=== PATIENT | female | born 1995 | race Caucasian/White ===

== ENCOUNTER 2023-04-11 20:21 | Outpatient (REF) | payer BC, SELFPAY ==
[2023-04-15 11:10] LABS: Age Gdln ACOG Testing Note (.); IGP, rfx Aptima HPV ASCU Note (.)
== END 2023-04-11 20:22 | disposition home or self-care (01) ==
LOC: LAB 20:21
PROVIDERS: Visit Provider Physician Assistant
DX: Z01.419 Encounter for gynecological examination (general) (routine) without abnormal findings (principal)
CPT/HCPCS: G0145

== ENCOUNTER 2024-08-15 19:45 | Outpatient (REF) | payer BC, SELFPAY ==
--- OUTSIDE RECORDS SUMMARY | 2024-08-15 19:48 | XMS_ITS | CCD ---
Author Organization [facility] Care Team Providers Care Electronic Sensing Equipment Assembler Name Role Phone Becka Aaron Unavailable EFRAIN ., DR REBOLLAR Attending Unavailable EFRAIN ., DR REBOLLAR Admitting Unavailable EFRAIN ., DR REBOLLAR Consulting Unavailable EFRAIN ., DR REBOLLAR Consulting Unavailable EFRAIN ., DR REBOLLAR Attending Unavailable EFRAIN ., DR REBOLLAR Admitting Unavailable EFRAIN ., DR REBOLLAR Consulting Unavailable EFRAIN ., DR REBOLLAR Admitting Unavailable EFRAIN ., DR REBOLLAR Attending Unavailable ZIEBER, DR SUSHMA Dumont Consulting Unavailable BENITO ., ANTHONY Consulting Unavailable EFRAIN ., DR REBOLLAR Consulting Unavailable EFRAIN ., DR REBOLLAR Attending Unavailable EFRAIN ., DR REBOLLAR Admitting Unavailable EFRAIN ., DR REBOLLAR Attending Unavailable EFRAIN ., DR REBOLLAR Admitting Unavailable DELHI, DR SERA Lund Consulting Unavailable EFRAIN ., DR REBOLLAR Consulting Unavailable EFRAIN ., DR REBOLLAR Consulting Unavailable EFRAIN ., DR REBOLLAR Admitting Unavailable EFRAIN ., DR REBOLLAR Attending Unavailable ZIEBER, DR SUSHMA Dumont Consulting Unavailable BENITO ., ANTHONY Consulting Unavailable EFRAIN ., DR REBOLLAR Admitting Unavailable EFRAIN ., DR REBOLLAR Attending Unavailable RICHIE KYA Consulting Unavailable KYA QUIROZ Admitting Unavailable KYA QUIROZ Attending Unavailable EFRAIN ., DR REBOLLAR Consulting Unavailable EFRAIN ., DR REBOLLAR Attending Unavailable EFRAIN ., DR REBOLLAR Admitting Unavailable EFRAIN ., DR REBOLLAR Consulting Unavailable EFRAIN ., DR REBOLLAR Admitting Unavailable EFRAIN ., DR REBOLLAR Attending Unavailable KARASIK ., DR SUBRAMANIAN Attending Unavailabl e KARASIK ., DR SUBRAMANIAN Consulting Unavailabl e KARASIK ., DR SUBRAMANIAN Admitting Unavailabl e EFRAIN ., DR REBOLLAR Consulting Unavailable EFRAIN ., DR REBOLLAR Admitting Unavailable EFRAIN ., DR REBOLLAR Attending Unavailable RICHIE, KYA Consulting Unavailable RICHIE, KYA Admitting Unavailable RICHIE, KYA Attending Unavailable KARASIK ., DR SUBRAMANIAN Admitting Unavailabl e KARASIK ., DR SUBRAMANIAN Attending Unavailabl e KARASIK ., DR SUBRAMANIAN Consulting Unavailabl e ZIEBER, DR SUSHMA Dumont Consulting Unavailable BENITO ., ANTHONY Consulting Unavailable WEST, DR SERA Lund Consulting Unavailable EFRAIN ., DR REBOLLAR Admitting Unavailable EFRAIN ., DR REBOLLAR Attending Unavailable EFRAIN ., DR REBOLLAR Consulting Unavailable BENITO ., ANTHONY Consulting Unavailable EFRAIN ., DR REBOLLAR Admitting Unavailable EFRAIN ., DR REBOLLAR Consulting Unavailable EFRAIN ., DR REBOLLAR Attending Unavailable EFRAIN ., DR REBOLLAR Admitting Unavailable EFRAIN ., DR REBOLLAR Attending Unavailable EFRAIN ., DR REBOLLAR Consulting Unavailable EFRAIN ., DR REBOLLAR Admitting Unavailable EFRAIN ., DR REBOLLAR Attending Unavailable EFRAIN ., DR REBOLLAR Admitting Unavailable EFRAIN ., DR REBOLLAR Consulting Unavailable EFRAIN ., DR REBOLLAR Attending Unavailable ZIEBER, DR SUSHMA Dumont Consulting Unavailable REQUEST, DR JANETH LISTED Consulting Unavaila ble BENITO ., ANTHONY Attending Unavailable BENITO ., ANTHONY Consulting Unavailable BENITO ., ANTHONY Admitting Unavailable EFRAIN ., DR REBOLLAR Consulting Unavailable EFRAIN ., DR REBOLLAR Admitting Unavailable EFRAIN ., DR REBOLLAR Attending Unavailable ZIEBER, DR SUSHMA Dumont Consulting Unavailable BENITO ., ANTHONY Consulting Unavailable KARASIK ., DR SUBRAMANIAN Attending Unavailabl e KARASIK ., DR SUBRAMANIAN Consulting Unavailabl e KARASIK ., DR SUBRAMANIAN Admitting Unavailabl e EFRAIN ., DR REBOLLAR Consulting Unavailable EFRAIN ., DR REBOLLAR Admitting Unavailable EFRAIN ., DR REBOLLAR Attending Unavailable ZIEBER, DR SUSHMA Dumnot Consulting Unavailable BENITO ., ANTHONY Consulting Unavailable EFRAIN ., DR REBOLLAR Consulting Unavailable EFRAIN ., DR REBOLLAR Admitting Unavailable EFRAIN ., DR REBOLLAR Attending Unavailable ZIEBER, DR SUSHMA Dumont Consulting Unavailable BENITO ., ANTHONY Consulting Unavailable EFRAIN ., DR REBOLLAR Attending Unavailable EFRAIN ., DR REBOLLAR Admitting Unavailable HAY ., DR STEVENS Admitting Unavailable REQUEST, NONE LISTED Primary Care Unavaila romario WOOD ., DR STEVENS Attending Unavailable ISRAEL ., DR STEVENS Consulting Unavailable ROSEMARY ., DR SUBRAMANIAN Procedure Practitioner Ana Laura vajacqueline RILEY ., DR SUBRAMANIAN Attending Unavailabl e ROSEMARY ., DR SUBRAMANIAN Admitting Unavailaustin NAVA ., DR PRO Consulting Unavailable REQUEST, DR NONE LISTED Primary Care Unavaila romario RILEY ., DR SUBRAMANIAN Consulting UnavailABHIJEET Diaz Consulting Unavailable KAEL CHATMAN Consulting Unavailable BENITO ., ANTHONY Attending Unavailable BENITO ., ANTHONY Admitting Unavailable KYA QUIROZ Consulting Unavailable KYA QUIROZ Admitting Unavailable KYA QUIROZ Attending Unavailable Lester EATON Attending Unavailable French Langford V. Attending UnavailMarie Evans Unavailable Medications Current Medications Medication Drug Class(es) Dates Sig (Normalized) Sig (Original) christian fe 1.5/30 1.5-30 mg-mcg tablet (11 sources) Estrogen take 1 tablet by christal th every twenty-four hours Christian Fe 1.5/30 1.5-30 MG-MCG 1 tablet Orally Once a day Active take 1 tablet by christal th every twenty-four hours Christian Fe 1.5/30 1.5-30 MG-MCG 1 tablet Orally Once a day Active hydrocortisone acetate 25 mg rectal suppository (11 sources) Corticosteroid Start: 12-12-2023 Hydrocortisone Acetate Active 25 MG VA Twice daily December 12, 2023 12:00am Anusol-HC 25 MG 1 suppository Rectal BID PRN for 10 days Not-Taking/PRN lamoTRIgine 150 mg oral tablet (16 sources) Mood Stabilizer, Anti-epileptic Agent Start: 01-30-2024 take 150 mg by mouth once daily Lamotrigine Active 150 MG PO Daily January 30, 2024 11:17am Start: 12-12-2023 End: 01-30-2024 take 1 tablet by mouth once daily Lamotrigine Discontinued 0 .ROUTE .COMPLEX 90 December 12, 2023 8:16am January 30, 2024 11:18am take 1 tablet by mouth once daily Start: 12-12-2023 End: 12-12-2023 take 150 mg by mouth once daily Lamotrigine Discontinu ed 150 MG PO Daily December 12, 2023 12:00am December 12, 2023 8:16am Start: 05-03-2023 take 1 tablet by christal th every twenty-four hours lamoTRIgine 100 MG 1 tablet Orally Once a day for 14 days Apr, Active Start: 04-05-2023 take 1 tablet by christal th once daily, then take 2 tablets by mouth once daily, then take 4 tablets by mouth once daily lamoTRIgine 25 MG as directed Orally Once a day for 35 days *1 tab daily x 14 days, then 2 tabs daily x 14 days, then 4 tabs daily x 7 days Mar, Active take 1 tablet by christal th every twenty-four hours lamoTRIgine 150 MG 1 tablet Orally Once a day for 90 days Active Norethindrone-E.Estradiol-Ir on (1 source) Start: 12-12-2023 take 1 tablet by mouth once daily Norethindrone-E.Estradiol-Iron Active 1 TAB PO Daily December 12, 2023 12:00am Problems Active Problems Problem Classification Problem Date Documented Date Episodic/Chronic Abdominal pain (3 sources) Unspecified abdominal pain; Translations: [UNSPECIFIED ABDOMINAL PAIN] Onset: 09-17-2022 Episodic Acute posthemorrhagic anemia (1 source) Acute posthemorrhagic anemia; Translations: [ACUTE POSTHEMORRHAGIC ANEMIA] Onset: 10-20-2022 Episodic Diabetes or abnormal glucose tolerance complicating ; childbirth; or the puerperium (15 sources) Gestational diabetes mellitus in childbirth, controlled by oral hypoglycemic drugs; Translations: [Gestational diabetes mellitus in , unspecified control] Onset: 08-13-2022 Episodic distress and abnormal forces of labor (1 source) Secondary uterine inertia; Translations: [SECONDARY UTERINE INERTIA] Onset: 10-20-2022 Episodic Fetopelvic disproportion; obstruction (1 source) Maternal care for disproportion, unspecified; Translations: [MATERNAL CARE FOR DISPROPORTION UNS] Onset: 10-20-2022 Episodic Hemorrhoids (9 sources) Unspecified hemorrhoids; Translations: [Hemorrhoids] Episodic Menstrual disorders (4 sources) Irregular menstruation, unspecified; Translations: [IRREGULAR MENSTRUATION UNSPECIFIED] Onset: 02-05-2022 Chronic Mood disorders (20 sources) Depressed bipolar I disorder; Translations: [Bipolar disorder, current episode depressed, mild or moderate severity, unspecified] Chronic Other aftercare (1 source) Encounter for other specified surgical aftercare; Translations: [ENC OTHER SPEC SURGICAL AFTERCARE] Onset: 09-20-2022 Episodic Other aftercare (1 source) Other snf (current) drug therapy; Translations: [OTH CLINICAL DATA ANALYST CURRENT DRUG THERAPY] Onset: 09-20-2022 Episodic Other complications of ; puerperium affecting management of mother (1 source) Anemia of the puerperium; Translations: [ANEMIA OF THE PUERPERIUM] Onset: 10-20-2022 Chronic Other complications of (1 source) Other placental disorders, third trimester; Translations: [OTH PLACENTAL DISORDER THIRD TRI] Onset: 08-19-2022 Episodic Other and delivery including normal (12 sources) Single live ; Translations: [ state, incidental] Onset: 02-07-2022 Episodic Residual codes; unclassified (1 source) 40 weeks gestation of ; Translations: [40 WEEKS GESTATION OF ] Onset: 10-20-2022 Episodic Residual codes; unclassified (1 source) 39 weeks gestation of ; Translations: [39 WEEKS GESTATION OF ] Onset: 09-10-2022 Episodic Residual codes; unclassified (1 source) 38 weeks gestation of ; Translations: [38 WEEKS GESTATION OF ] Onset: 09-04-2022 Episodic Residual codes; unclassified (1 source) 37 weeks gestation of ; Translations: [37 WEEKS GESTATION OF ] Onset: 08-30-2022 Episodic Residual codes; unclassified (1 source) 36 weeks gestation of ; Translations: [36 WEEKS GESTATION OF ] Onset: 08-19-2022 Episodic Residual codes; unclassified (1 source) 35 weeks gestation of ; Translations: [35 WEEKS GESTATION OF ] Onset: 08-13-2022 Episodic Residual codes; unclassified (1 source) 34 weeks gestation of ; Translations: [34 WEEKS GESTATION OF ] Onset: 08-06-2022 Episodic Residual codes; unclassified (1 source) 33 weeks gestation of ; Translations: [33 WEEKS GESTATION OF ] Onset: 07-30-2022 Episodic Past or Other Problems Problem Classification Problem Date Documented Date Episodic/Chronic Immunizations and screening for infectious disease (7 sources) Contact with and (suspected) exposure to other viral communicable diseases; Translations: [Encounter for screening for infections with a predominantly sexual mode of transmission] Onset: 06-09-2021 Resolved: 06-09-2021 Episodic Other female genital disorders (4 sources) Other specified noninflammatory disorders of vagina; Translations: [OTH SPEC NONINFLAMMATORY D/O VAGINA] Onset: 03-29-2022 Episodic Other screening for suspected conditions (not mental disorders or infectious disease) (14 sources) Encounter for other specified screening; Translations: [Encounter for screening, unspecified] Onset: 02-25-2022 Episodic Viral infection (1 source) COVID-19 Onset: 06-09-2021 Resolved: 06-09-2021 Results Test Name Value Interpretation Reference Range Facility Family Medicine Office/Clini c Noteon 12-20-2022 Family Medicine Office/Clinic Note Chief Complaint Pt in office with nasal congestion dry cough and right ear pain. HPI Staff Complaints of nasal congestion, sinus pressure, right ear pain, dry cough. No fever Onset: 5 days ago Characteristics: Sinus pressure, congestion, blood tinge mucous, right ear pain. OTC tried: Benadryl, Dayquil History of Present Illness Portions of this record may have been created with voice recognition artificial intelligence software, specifically [employer], [employer] and or [employer]. Substitutions may have occurred due to the inherent limitations of voice recognition and artificial intelligence software. Staff hpi reviewed. Patient is a 27 year-old female complains of right ear pain. Denies pain in the left ear. Has had sinus pressure dry cough. States symptoms began 5 days ago. Has attempted Benadryl and DayQuil. No other complaints or concerns. Patient with no known medication allergies. Review of Systems PHQ Score Initial Depression Screen Score: 0 Physical Exam Vitals & Measurements HR: 124(Peripheral) RR: 14 BP: 102/62 SpO2: 97% HT: 64 in HT: 162 cm WT: 87.54 kg WT: 192.588 lb BMI: 33.36 General - alert no acute distress Skin - warm dry Head -normocephalic atraumatic Eye - normal conjunctiva ENMT - right TM bulging and erythematous, left TM pearly lloyd white, mild cobblestoning Neck - supple Cardiovascular - regular rate regular rhythm, no murmur, normal peripheral perfusion Respiratory - lungs clear to auscultation, nonlabored respirations, breath sounds equal Lymphatics - no lymphadenopathy Assessment/Plan 1. Right otitis media (H66.91: Otitis media, unspecified, right ear) Will treat with amoxil. Finish course. Fluids/rest, PRN tylenol/ibuprofen for pain and/or fever encouraged. May use antipyretics for symptomatic tx. Encouraged to follow up with PCP for recheck in about 5 days to ensure infection resolving, especially if symptoms worsening or fevers. Patient and/or parent verbalized understanding of treatment plan. Ordered: amoxicillin, 500 mg = 1 cap(s), Oral, q12hr, # 20 cap(s), Refills(s) 0, Pharmacy: [facility] #[id number], 162, cm, 12/20/22 16:20:00 EDT, Height/Length Dosing, 87.5, kg, 12/20/22 16:20:00 EDT, Weight Dosing loratadine-pseudoeph edrine, 1 tab(s), Oral, Daily, 15 tab(s), Refill(s) 0, [facility] #[id number], 162, cm, 12/20/22 16:20:00 EDT, Height/Length Dosing, 87.5, kg, 12/20/22 16:20:00 EDT, Weight Dosing 2. Otalgia, right ear (H92.01: Otalgia, right ear) As above Ordered: amoxicillin, 500 mg = 1 cap(s), Oral, q12hr, # 20 cap(s), Refills(s) 0, Pharmacy: [facility] #[id number], 162, cm, 12/20/22 16:20:00 EDT, Height/Length Dosing, 87.5, kg, 12/20/22 16:20:00 EDT, Weight Dosing loratadine-pseudoeph edrine, 1 tab(s), Oral, Daily, 15 tab(s), Refill(s) 0, [facility] #[id number], 162, cm, 12/20/22 16:20:00 EDT, Height/Length Dosing, 87.5, kg, 12/20/22 16:20:00 EDT, Weight Dosing 3. Runny nose (R09.89: Other specified symptoms and signs involving the circulatory and respiratory systems) We have provided you with a decongestant this will help clear up the ears and sinuses. Ordered: loratadine-pseudoeph edrine, 1 tab(s), Oral, Daily, 15 tab(s), Refill(s) 0, [facility] #[id number], 162, cm, 12/20/22 16:20:00 EDT, Height/Length Dosing, 87.5, kg, 12/20/22 16:20:00 EDT, Weight Dosing 4. BMI 33.0-33.9,adult (Z68.33: Body mass index [BMI] 33.0-33.9, adult) The standard range for ages 18 and older is >=18.5 and < 25 kg/m2. Your BMI today was above this range, this falls in the overweight to obese category and there are medical benefits to weight loss. We can offer counselling, referral, and/or medical support in addressing this problem. Your BMI and weight management will be followed at subsequent visits. Follow-up No qualifying data available Patient Education Otitis Media, Adult BMI for Adults Problem List/Past Medical History Ongoing Anxiety Bipolar disorder, current episode mixed BMI 33.0-33.9,adult Candidal dermatitis Dermatitis Gastroenteritis Heart murmur, systolic Knee pain Otalgia, right ear Right otitis media Runny nose Historical No qualifying data Procedure/Surgical History None. Medications amoxicillin 500 mg Cap, 500 mg= 1 cap(s), Oral, q12hr Benadryl Claritin-D 24 Hour 10 mg-240 mg Tab-ER, 1 tab(s), Oral, Daily Dayquil Liquicaps ethinyl estradiol-norgestima te 35 mcg-0.25 mg Tab, 1 tab(s), Oral, Daily Allergies No Known Allergies No Known Medication Allergies Social History Alcohol Current, Beer, 1-2 times per year, 1 drinks/episode average. 1.00 drinks/episode maximum. Started age 20 Years. Previous treatment: None. Alcohol use interferes with work or home: No. Drinks more than intended: No. Others hurt by drinking: No. Ready to change: No., 01/11/2019 Substance Abuse - Denies Substance Abuse, 01/11/2019 Tobacco Never (less than 100 in lifetime) Tobacco Use:. Never Smokeless Tobacco Use:., 02/14/2019 Family History Autis (more content not included)... Normal [facility] Comment on above: Result Comment: Elec tronically Signed By: French Langford PA-C, V.\.br\Date and Time Signed: 12/20/22 16:44 EDT Patient Educationon 12-21-19 Patient Education ENT Otitis Media, Adult Otitis media occurs when there is inflammation and fluid in the middle ear with signs and symptoms of an acute infection. The middle ear is a part of the ear that contains bones for hearing as well as air that helps send sounds to the brain. When infected fluid builds up in this space, it causes pressure and can lead to an ear infection. The eustachian tube connects the middle ear to the back of the nose (nasopharynx) and normally allows air into the middle ear. If the eustachian tube becomes blocked, fluid can build up and become infected. What are the causes? This condition is caused by a blockage in the eustachian tube. This can be caused by mucus or by swelling of the tube. Problems that can cause a blockage include: ? A cold or other upper respiratory infection. ? Allergies. ? An irritant, such as tobacco smoke. ? Enlarged adenoids. The adenoids are areas of soft tissue located high in the back of the throat, behind the nose and the roof of the mouth. They are part of the body's defense system (immune system). ? A mass in the nasopharynx. ? Damage to the ear caused by pressure changes (barotrauma). What increases the risk? You are more likely to develop this condition if you: ? Smoke or are exposed to tobacco smoke. ? Have an opening in the roof of your mouth (cleft palate). ? Have gastroesophageal reflux. ? Have an immune system disorder. What are the signs or symptoms? Symptoms of this condition include: ? Ear pain. ? Fever. ? Decreased hearing. ? Tiredness (lethargy). ? Fluid leaking from the ear, if the eardrum is ruptured or has burst. ? Ringing in the ear. How is this diagnosed? This condition is diagnosed with a physical exam. During the exam, your health care provider will use an instrument called an otoscope to look in your ear and check for redness, swelling, and fluid. He or she will also ask about your symptoms. Your health care provider may also order tests, such as: ? A pneumatic otoscopy. This is a test to check the movement of the eardrum. It is done by squeezing a small amount of air into the ear. ? A tympanogram. This is a test that shows how well the eardrum moves in response to air pressure in the ear canal. It provides a graph for your health care provider to review. How is this treated? This condition can go away on its own within 3?5 days. But if the condition is caused by a bacterial infection and does not go away on its own, or if it keeps coming back, your health care provider may: ? Prescribe antibiotic medicine to treat the infection. ? Prescribe or recommend medicines to control pain. Follow these instructions at home: ? Take wocy-oto-wzdgyas and prescription medicines only as told by your health care provider. ? If you were prescribed an antibiotic medicine, take it as told by your health care provider. Do not stop taking the antibiotic even if you start to feel better. ? Keep all follow-up visits. This is important. Contact a health care provider if: ? You have bleeding from your nose. ? There is a lump on your neck. ? You are not feeling better in 5 days. ? You feel worse instead of better. Get help right away if: ? You have severe pain that is not controlled with medicine. ? You have swelling, redness, or pain around your ear. ? You have stiffness in your neck. ? A part of your face is not moving (paralyzed). ? The bone behind your ear (mastoid bone) is tender when you touch it. ? You develop a severe headache. Summary ? Otitis media is redness, soreness, and swelling of the middle ear, usually resulting in pain and decreased hearing. ? This condition can go away on its own within 3?5 days. ? If the problem does not go away in 3?5 days, your health care provider may give you medicines to treat the infection. ? If you were prescribed an antibiotic medicine, take it as told by your health care provider. ? Follow all instructions that were given to you by your health care provider. This information is not intended to replace advice given to you by your health care provider. Make sure you discuss any questions you have with your health care provider. Document Revised: 09/07/2021 Document Reviewed: 09/07/2021 Elsevier Patient Education ? 2022 [employer] Nutrition BMI for Adults What is BMI? Body mass index (BMI) is a number that is calculated from a person's weight and height. BMI can help estimate how much of a person's weight is composed of fat. BMI does not measure body fat directly. Rather, it is an alternative to procedures that directly measure body fat, which can be difficult and expensive. BMI can help identify people who may be at higher risk for certain medical problems. What are BMI measurements used for? BMI is used as a screening tool to identify possible weight problems. It helps determine whether a person is obese, overweight, a heal (more content not included)... Normal [facility] CBC AUTO DIFFon 09-13-2022 BASO # 0.0 103/ul Normal 0.0-0.1 [facility] Comment on above: Performed By: #### C BC #### [facility] [address] [place] [address] Dr. Julia Land Basophils/100 WBC (Bld) 0.1 % Critically low 0.2-2.0 [facility] Comment on above: Performed By: #### C BC #### [facility] [address] [place] [address] Dr. Julia Land EO # 0.0 103/ul Normal 0.0-0.7 [facility] Comment on above: Performed By: #### C BC #### [facility] [address] [place] [address] Dr. Julia Lnad Eosinophils/100 WBC (Bld) 0.0 % Critically low 0.9-7.0 [facility] Comment on above: Performed By: #### C BC #### [facility] [address] [place] [address] Dr. Julia Land Erythrocyte distribution width (RBC) [Ratio] 15.7 % Critically high 11.0-15.0 [facility] Comment on above: Performed By: #### C BC #### [facility] [address] [place] [address] Dr. Julia Land Hematocrit (Bld) [Volume fraction] 25.2 % Critically low 36.0-48.0 [facility] Comment on above: Performed By: #### C BC #### [facility] [address] [place] [address] Dr. Julia Land Hemoglobin (Bld) [Mass/Vol] 8.2 g/dL Critically low 12.0-16.0 [facility] Comment on above: Result Comment: Post Performed By: #### C BC #### [facility] [address] [place] [address] Dr. Julia Land IG # 0.05 10e3/ul Critically high 0.00-0.03 [facility] Comment on above: Performed By: #### C BC #### [facility] [address] [place] [address] Dr. Julia Land IG % 0.3 % Normal 0.0-0.5 [facility] Comment on above: Performed By: #### C BC #### [facility] [address] [place] [address] Dr. Julia Land LYMPH # 1.8 103/ul Normal 1.2-3.8 [facility] Comment on above: Performed By: #### C BC #### [facility] [address] [place] [address] Dr. Julia Land Lymphocytes/100 WBC (Bld) 11.3 % Critically low 20.5-60.0 [facility] Comment on above: Performed By: #### C BC #### [facility] [address] [place] [address] Dr. Julia Land MANUAL DIFF REQ NO Normal [facility] Comment on above: Performed By: #### C BC #### [facility] [address] [place] [address] Dr. Julia Land MCH (RBC) [Entitic mass] 26.4 pg Critically low 26.7-34.0 [facility] Comment on above: Performed By: #### C BC #### [facility] [address] [place] [address] Dr. Julia Land MCHC (RBC) [Mass/Vol] 32.5 g/dL Normal 29.9-35.2 [facility] Comment on above: Performed By: #### C BC #### [facility] [address] [address] [address] Julia Land MCV (RBC) [Entitic vol] 81.0 fL Normal 81.0-99.0 [facility] Comment on above: Performed By: #### C BC #### [facility] [address] [address] [address] Julia Land MONO # 1.0 103/ul Critically high 0.3-0.8 [facility] Comment on above: Performed By: #### C BC #### [facility] [address] [place] [address] Dr. Julia Land Monocytes/100 WBC (Bld) 5.8 % Normal 1.7-12.0 [facility] Comment on above: Performed By: #### C BC #### [facility] [address] [place] [address] Dr. Julia Land NEUT # 13.5 103/ul Critically high 1.4-6.5 [facility] Comment on above: Performed By: #### C BC #### [facility] [address] [place] [address] Dr. Julia Land Neutrophils/100 WBC (Bld) 82.5 % Critically high 43.0-75.0 [facility] Comment on above: Performed By: #### C BC #### [facility] [address] [place] [address] Dr. Julia Land Platelet mean volume (Bld) [Entitic vol] 9.2 fL Critically low 9.5-13.5 [facility] Comment on above: Performed By: #### C BC #### [facility] [address] [place] [address] Dr. Julia Land PLT 283 103/ul Normal 150-450 [facility] Comment on above: Performed By: #### C BC #### [facility] [address] [place] [address] Dr. Julia Land RBC 3.11 106/ul Critically low 4.20-5.40 [facility] Comment on above: Performed By: #### C BC #### [facility] [address] [address] [address] Julia Land WBC 16.3 103/ul Critically high 4.0-11.0 [facility] Comment on above: Performed By: #### C BC #### [facility] [address] [place] [address] Dr. Julia Land AMNISUREon 09-12-2022 AMNISURE Positive Abnormal NEGATIVE [facility] Comment on above: Performed By: #### P OCGLUC #### [facility] [address] [place] [address] Dr. Julia Land CBC AUTO DIFFon 09-12-2022 BASO # 0.0 103/ul Normal 0.0-0.1 [facility] Comment on above: Performed By: #### C BC #### [facility] [address] [place] [address] Dr. Julia Land Basophils/100 WBC (Bld) 0.2 % Normal 0.2-2.0 [facility] Comment on above: Performed By: #### C BC #### [facility] [address] [place] [address] Dr. Julia Land EO # 0.0 103/ul Normal 0.0-0.7 [facility] Comment on above: Performed By: #### C BC #### [facility] [address] [place] [address] Dr. Julia Land Eosinophils/100 WBC (Bld) 0.3 % Critically low 0.9-7.0 [facility] Comment on above: Performed By: #### C BC #### [facility] [address] [place] [address] Dr. Julia Land Erythrocyte distribution width (RBC) [Ratio] 15.6 % Critically high 11.0-15.0 [facility] Comment on above: Performed By: #### C BC #### [facility] [address] [place] [address] Dr. Julia Land Hematocrit (Bld) [Volume fraction] 33.9 % Critically low 36.0-48.0 [facility] Comment on above: Performed By: #### C BC #### [facility] [address] [place] [address] Dr. Julia Land Hemoglobin (Bld) [Mass/Vol] 11.0 g/dL Critically low 12.0-16.0 [facility] Comment on above: Performed By: #### C BC #### [facility] [address] [place] [address] Dr. Julia Land IG # 0.03 10e3/ul Normal 0.00-0.03 [facility] Comment on above: Performed By: #### C BC #### [facility] [address] [place] [address] Dr. Julia Land IG % 0.3 % Normal 0.0-0.5 [facility] Comment on above: Performed By: #### C BC #### [facility] [address] [place] [address] Dr. Julia Land LYMPH # 1.8 103/ul Normal 1.2-3.8 [facility] Comment on above: Performed By: #### C BC #### [facility] [address] [place] [address] Dr. Julia Land Lymphocytes/100 WBC (Bld) 17.2 % Critically low 20.5-60.0 [facility] Comment on above: Performed By: #### C BC #### [facility] [address] [place] [address] Dr. Julia Land MANUAL DIFF REQ NO Normal [facility] Comment on above: Performed By: #### C BC #### [facility] [address] [place] [address] Dr. Julia Land MCH (RBC) [Entitic mass] 26.2 pg Critically low 26.7-34.0 [facility] Comment on above: Performed By: #### C BC #### [facility] [address] [place] [address] Dr. Julia Land MCHC (RBC) [Mass/Vol] 32.4 g/dL Normal 29.9-35.2 [facility] Comment on above: Performed By: #### C BC #### [facility] [address] [address] [address] Julia Land MCV (RBC) [Entitic vol] 80.7 fL Critically low 81.0-99.0 [facility] Comment on above: Performed By: #### C BC #### [facility] [address] [address] [address] Julia Land MONO # 0.5 103/ul Normal 0.3-0.8 [facility] Comment on above: Performed By: #### C BC #### [facility] [address] [address] [address] Julia Land Monocytes/100 WBC (Bld) 4.9 % Normal 1.7-12.0 [facility] Comment on above: Performed By: #### C BC #### [facility] [address] [address] [address] Julia Land NEUT # 8.0 103/ul Critically high 1.4-6.5 [facility] Comment on above: Performed By: #### C BC #### [facility] [address] [address] [address] Julia Land Neutrophils/100 WBC (Bld) 77.1 % Critically high 43.0-75.0 [facility] Comment on above: Performed By: #### C BC #### [facility] [address] [address] [address] Julia Land Platelet mean volume (Bld) [Entitic vol] 9.3 fL Critically low 9.5-13.5 [facility] Comment on above: Performed By: #### C BC #### [facility] [address] [address] [address] Julia Land PLT 369 103/ul Normal 150-450 [facility] Comment on above: Performed By: #### C BC #### [facility] [address] [address] [address] Julia Land RBC 4.20 106/ul Normal 4.20-5.40 [facility] Comment on above: Performed By: #### C BC #### [facility] [address] [address] [address] Julia Land WBC 10.4 103/ul Normal 4.0-11.0 [facility] Comment on above: Performed By: #### C BC #### [facility] [address] [place] [address] Dr. Julia Land DRUG SCREEN RAPID (URINE)on 09-12-2022 AMP Negative Normal NEGATIVE [facility] Comment on above: Performed By: #### G LU1HR #### [facility] [address] [place] [address] Dr. Julia Land BAR Negative Normal NEGATIVE [facility] Comment on above: Performed By: #### G LU1HR #### [facility] [address] [place] [address] Dr. Julia Land BUP Negative Normal NEGATIVE [facility] Comment on above: Performed By: #### G LU1HR #### [facility] [address] [place] [address] Dr. Julia Land BZO Negative Normal NEGATIVE [facility] Comment on above: Performed By: #### G LU1HR #### [facility] [address] [place] [address] Dr. Julia Land YUNIER Negative Normal NEGATIVE [facility] Comment on above: Performed By: #### G LU1HR #### [facility] [address] [place] [address] Dr. Julia Land CUT-OFFS SEE BELOW Normal [facility] Comment on above: Result Comment: AMP (Amphetamine): 500ng/mL, BAR (Barbituates): 200 ng/mL, BZO (Benzodiazepines): 150 ng/mL, BUP (Buprenorphine): 10 ng/mL, YUNIER (Cocaine): 150 ng/mL, mAMP (Methamphetamine): 500 ng/mL, MTD (Methadone): 200 ng/mL, OPI (Opiates): 100 ng/mL, OXY (Oxycodone): 100 ng/mL, PCP (Phencyclidine): 25 ng/mL, PPX (Propoxyphene): 300 ng/mL, THC (Cannabinoids): 50 ng/mL, TCA (Trycyclic Antidepressants): 300 ng/mL Performed By: #### G LU1HR #### [facility] [address] [place] [address] Dr. Julia Land DRUG CUT HEADER DRUG CLASS TEST SYSTEM CUT-OFF CONCENTRATIONS ARE FOLLOWS: Normal [facility] Comment on above: Performed By: #### G LU1HR #### [facility] [address] [place] [address] Dr. Julia Land mAMP Negative Normal NEGATIVE [facility] Comment on above: Performed By: #### G LU1HR #### [facility] [address] [place] [address] Dr. Julia Land MTD Negative Normal NEGATIVE [facility] Comment on above: Performed By: #### G LU1HR #### [facility] [address] [place] [address] Dr. Julia Land OPI Negative Normal NEGATIVE [facility] Comment on above: Performed By: #### G LU1HR #### [facility] [address] [place] [address] Dr. Julia Land OXY Negative Normal NEGATIVE [facility] Comment on above: Performed By: #### G LU1HR #### [facility] [address] [place] [address] Dr. Julia Land PCP Negative Normal NEGATIVE [facility] Comment on above: Performed By: #### G LU1HR #### [facility] [address] [place] [address] Dr. Julia Land PPX Negative Normal NEGATIVE [facility] Comment on above: Performed By: #### G LU1HR #### [facility] [address] [place] [address] Dr. Julia Land TCA Negative Normal NEGATIVE [facility] Comment on above: Performed By: #### G LU1HR #### [facility] [address] [place] [address] Dr. Julia Land THC Negative Normal NEGATIVE [facility] Comment on above: Performed By: #### G LU1HR #### [facility] [address] [place] [address] Dr. Julia Land POINT OF CARE GLUCOSEon Glucose [Mass/Vol] 80 mg/dL Normal 74-106 [facility] Comment on above: Performed By: #### P OCGLUC #### [facility] [address] [address] [address] Julia Land TYPE AND SCREENon 09-12-2022 TYPE AND SCREEN Negative Normal [facility] Comment on above: Performed By: #### H BSANS #### [facility] [address] [address] [address] Julia Land UA (CLEAN/CATCH) CLERK STENOGRAPHER/MICRO I F IND.on 09-12-2022 Bilirubin Ql (U) Negative Normal NEGATIVE [facility] Comment on above: Performed By: #### P OCGLUC #### [facility] [address] [place] [address] Dr. Julia Land Clarity (U) CLEAR Normal CLEAR [facility] Comment on above: Performed By: #### P OCGLUC #### [facility] [address] [address] [address] Julia Land Color (U) LT. YELLOW Normal YELLOW [facility] Comment on above: Performed By: #### P OCGLUC #### [facility] [address] [address] [address] Julia Land Glucose Ql (U) Negative Normal NEGATIVE [facility] Comment on above: Performed By: #### P OCGLUC #### [facility] [address] [address] [address] Julia Land Hemoglobin Ql (U) Negative Normal NEGATIVE [facility] Comment on above: Performed By: #### P OCGLUC #### [facility] [address] [address] [address] Julia Land Ketones Ql (U) Negative Normal NEGATIVE [facility] Comment on above: Performed By: #### P OCGLUC #### [facility] [address] [address] [address] Julia Land LEUKOCYTES Negative Normal NEGATIVE [facility] Comment on above: Performed By: #### P OCGLUC #### [facility] [address] [place] [address] Dr. Julia Land Nitrite Ql (U) Negative Normal NEGATIVE [facility] Comment on above: Performed By: #### P OCGLUC #### [facility] [address] [place] [address] Dr. Julia Land pH (U) 6.0 [pH] Normal 5-9 [facility] Comment on above: Performed By: #### P OCGLUC #### [facility] [address] [place] [address] Dr. Julia Land SPEC GRAVITY <=1.005 Abnormal 1.005-<=1.025 [facility] Comment on above: Performed By: #### P OCGLUC #### [facility] [address] [place] [address] Dr. Julia Land UA PROTEIN Negative Normal NEGATIVE/ TRACE [facility] Comment on above: Performed By: #### P OCGLUC #### [facility] [address] [place] [address] Dr. Julia Land UR MICRO IND NOT INDICATED Normal [facility] Comment on above: Performed By: #### P OCGLUC #### [facility] [address] [place] [address] Dr. Julia Land Urobilinogen Qn (U) 0.2 {Belia'U}/dL Normal 0.2 - 1. 0 [facility] Comment on above: Performed By: #### P OCGLUC #### [facility] [address] [place] [address] Dr. Julia Land US PREG BIOPHY W NON STRESSo n 09-07-2022 US PREG BIOPHY W NON STRESS EXAMINATION: US PREG BIOPHY W NON STRESS HISTORY: Gestational diabetes mellitus COMPARISON: Ultrasound biophysical 08/31/2022 FINDINGS: BREATHING MOVEMENTS: 2.0 GROSS BODY MOVEMENTS: 2.0 TONE: 2.0 QUALITATIVE AMNIOTIC FLUID VOLUME: 2.0 PRESENTATION: Cephalic HEART RATE: 142.1 bpm bpm. AMNIOTIC FLUID VOLUME: 10.8 cm GESTATIONAL AGE: 39 weeks 5 days CONCLUSION: Total biophysical profile score 8.0. Electronically authenticated by: SUSHMA CUADRA Date: 2022-09-07 11:30 Normal [facility] US PREG BIOPHY W NON STRESSo n 08-31-2022 US PREG BIOPHY W NON STRESS EXAMINATION: US PREG BIOPHY W NON STRESS HISTORY: Gestational diabetes mellitus COMPARISON: Ultrasound pelvis the biophysical 08/24/2022 FINDINGS: BREATHING MOVEMENTS: 2.0 GROSS BODY MOVEMENTS: 2.0 TONE: 2.0 QUALITATIVE AMNIOTIC FLUID VOLUME: 2.0 PRESENTATION: CEPHALIC HEART RATE: 152.5 bpm bpm. AMNIOTIC FLUID VOLUME: 12.4 cm GESTATIONAL AGE: 38 weeks 5 days CONCLUSION: Total biophysical profile score 8.0. Electronically authenticated by: SUSHMA CUADRA Date: 2022-08-31 15:13 Normal [facility] US PREG BIOPHY W NON STRESSo n 08-24-2022 US PREG BIOPHY W NON STRESS EXAMINATION: US PREG BIOPHY W NON STRESS HISTORY: Gestational diabetes mellitus COMPARISON: Ultrasound biophysical 08/17/2022 FINDINGS: BREATHING MOVEMENTS: 2.0 GROSS BODY MOVEMENTS: 2.0 TONE: 2.0 QUALITATIVE AMNIOTIC FLUID VOLUME: 2.0 PRESENTATION: Cephalic HEART RATE: 145.9 bpm bpm. AMNIOTIC FLUID VOLUME: 14.2 cm GESTATIONAL AGE: 37 weeks 5 days CONCLUSION: Total biophysical profile score 8.0. Electronically authenticated by: SUSHMA CUADRA Date: 2022-08-24 15:21 Normal [facility] US PREG GROWTHon 08-24-2022 US PREG GROWTH EXAMINATION: US PREG GROWTH HISTORY: Gestational diabetes mellitus COMPARISON: Ultrasound growth 07/27/2022 FINDINGS: Heart Rate: 145.9 bpm Number: 1.0 Position: Cephalic Amniotic Fluid Volume: 14.2 cm Maximum Vertical Pocket: 3.9 cm BIOMETRY: BPD: 9.5 cm cm; 38 weeks 5 days HC: 34.5 cmcm; 39 weeks 6 days AC: 33.7 cm cm; 37 weeks 4 days FL: 7.2 cm cm; 37 weeks 0 days EFW: 3327.9 grams; 65% FL/AC: 21.5 FL/BPD: 76.2 HC/AC: 1.0 GESTATIONAL AGE: Age by EDC: 37 weeks 5 days SEAN by EDC: 09/09/2022 Age by US: 38 weeks 2 days SEAN by US: 09/05/2022 IMPRESSION: 1. Single live intrauterine with growth detailed above. Electronically authenticated by: SUSHMA CUADRA Date: 2022-08-24 15:08 Normal [facility] US PREG BIOPHY W NON STRESSo n 08-17-2022 US PREG BIOPHY W NON STRESS EXAMINATION: US PREG BIOPHY W NON STRESS HISTORY: Gestational diabetes mellitus COMPARISON: Ultrasound biophysical 08/10/2022 FINDINGS: BREATHING MOVEMENTS: 2.0 GROSS BODY MOVEMENTS: 2.0 TONE: 2.0 QUALITATIVE AMNIOTIC FLUID VOLUME: 2.0 PRESENTATION: Cephalic HEART RATE: 145.9 bpm bpm. AMNIOTIC FLUID VOLUME: 11.7 cm GESTATIONAL AGE: 36 weeks 5 days CONCLUSION: 1. Total biophysical profile score 8.0. 2. Calcifications seen within placenta consistent with an aging placenta. Electronically authenticated by: SUSHMA CUADRA Date: 2022-08-17 15:11 Normal [facility] GROUP B STREP CULTUREon S. agalactiae Ag Ql (Unsp spec) Culture Observations: NEGATIVE FOR GROUP B STREPTOCOCCUS. Normal [facility] Comment on above: Performed By: #### G BSCX #### [facility] [address] [place] [address] Dr. Julia Land PREG BIOPHY W NON STRESSo n 08-10-2022 US PREG BIOPHY W NON STRESS EXAMINATION: US PREG BIOPHY W NON STRESS HISTORY: Gestational diabetes mellitus COMPARISON: No relevant comparison available. TECHNIQUE: Ultrasound biophysical profile was performed in the radiology department. FINDINGS: BREATHING MOVEMENTS: 2.0 GROSS BODY MOVEMENTS: 2.0 TONE: 2.0 QUALITATIVE AMNIOTIC FLUID VOLUME: 2.0 PRESENTATION: Cephalic HEART RATE: 149.2 bpm H.B./min AMNIOTIC FLUID VOLUME: 13.0 cm cm GESTATIONAL AGE: 35 weeks 5 days CONCLUSION: Total biophysical profile score: 8.0 Electronically authenticated by: SERA YEN Date: 2022-08-10 16:01 Normal [facility] US PREG BIOPHY W NON STRESSo n 08-03-2022 US PREG BIOPHY W NON STRESS EXAMINATION: US PREG BIOPHY W NON STRESS HISTORY: Gestational diabetes mellitus COMPARISON: No relevant comparison available. FINDINGS: BREATHING MOVEMENTS: 2.0 GROSS BODY MOVEMENTS: 2.0 TONE: 2.0 QUALITATIVE AMNIOTIC FLUID VOLUME: 2.0 PRESENTATION: Cephalic HEART RATE: 148.4 bpm bpm. AMNIOTIC FLUID VOLUME: 13.5 cm GESTATIONAL AGE: 34 weeks 5 days CONCLUSION: Total biophysical profile score 8.0. Electronically authenticated by: SUSHMA CUADRA Date: 2022-08-03 15:18 Normal [facility] US PREG BIOPHY W NON STRESSo n 07-27-2022 US PREG BIOPHY W NON STRESS EXAMINATION: US PREG BIOPHY W NON STRESS HISTORY: Gestational diabetes mellitus COMPARISON: No relevant comparison available. FINDINGS: BREATHING MOVEMENTS: 2.0 GROSS BODY MOVEMENTS: 2.0 TONE: 2.0 QUALITATIVE AMNIOTIC FLUID VOLUME: 2.0 PRESENTATION: Cephalic HEART RATE: 156.1 bpm bpm. AMNIOTIC FLUID VOLUME: 13.4 cm GESTATIONAL AGE: 33 weeks 5 days CONCLUSION: Total biophysical profile score 8.0. Electronically authenticated by: SUSHMA CUADRA Date: 2022-07-27 15:13 Normal [facility] US PREG GROWTHon 07-27-2022 US PREG GROWTH EXAMINATION: US PREG GROWTH HISTORY: Gestational diabetes mellitus COMPARISON: Ultrasound anatomy 04/26/2022 FINDINGS: Heart Rate: 156.1 bpm Number: 1.0 Position: Cephalic Amniotic Fluid Volume: 13.4 cm Maximum Vertical Pocket: 4.8 cm BIOMETRY: BPD: 9.0 cm cm; 36 weeks 3 days; >97% HC: 32.0 cmcm; 36 weeks 0 days; 73% AC: 31.1 cm cm; 35 weeks 0 days; 86% FL: 6.7 cm cm; 34 weeks 4 days; 63% EFW: 2606.0 grams; 84% FL/AC: 21.6 FL/BPD: 74.7 HC/AC: 1.0 GESTATIONAL AGE: Age by EDC: 33 weeks 5 days SEAN by EDC: 09/09/2022 Age by US: 35 weeks 4 days SEAN by US: 08/27/2022 IMPRESSION: 1. Single live intrauterine with growth detailed above. 2. BPD greater than 97th percentile. Electronically authenticated by: SUSHMA CUADRA Date: 2022-07-27 15:16 Normal [facility] GTT 3 HR PREGon 06-08-2022 Glucose [Mass/Vol] 81 mg/dL Normal 74-106 [facility] Comment on above: Performed By: #### H BSANS #### [facility] [address] [address] [address] Julia Land Glucose [Mass/Vol] 187 mg/dL Normal [facility] Comment on above: Performed By: #### H BSANS #### [facility] [address] [address] [address] Julia Land Glucose [Mass/Vol] 178 mg/dL Normal [facility] Comment on above: Performed By: #### H BSANS #### [facility] [address] [address] [address] Julia Land Glucose [Mass/Vol] 110 mg/dL Normal [facility] Comment on above: Performed By: #### H BSANS #### [facility] [address] [address] [address] Julia Land GLUCOSE - 1HRon 06-02-2022 Glucose [Mass/Vol] 157 mg/dL Critically high 74-106 [facility] Comment on above: Performed By: #### G LU1HR #### [facility] [address] [address] [address] Julia Land GLYCOHEMOGLOBIN A1Con 2021 ADA RECOMMENDATION SEE BELOW Normal [facility] Comment on above: Result Comment: ADA RECOMMENDED LIMIT 4.0 - 6.0 ADA THERAPEUTIC TARGET < 7.0 ACTION SUGGESTED > 7.0 Performed By: #### G LU1HR #### [facility] [address] [address] [address] Julia Land Glucose [Mass/Vol] 100 mg/dL Normal [facility] Comment on above: Performed By: #### G LU1HR #### [facility] [address] [address] [address] Julia Land HbA1c (Bld) [Mass fraction] 5.1 % Normal 4.5-6.2 [facility] Comment on above: Performed By: #### G LU1HR #### [facility] [address] [address] [address] Julia Land US PREG ANATOMY SINGLEon US PREG ANATOMY SINGLE EXAMINATION: US PREG ANATOMY SINGLE HISTORY: anatomy study COMPARISON: No relevant comparison available. TECHNIQUE: Transabdominal sonographic examination was performed for obstetrical and evaluation. FINDINGS: Number: 1 Heart Rate: 156.0 bpm H.B. /min Amniotic Fluid Volume: Subjectively normal position: Cephalic Placental Location: Anterior, grade 0. Placental edge 5.3 cm from the os Cervix Length: 4.3 cm, closed Normally visualized anatomy: Cerebellum, choroid plexus, cisterna magna, lateral cerebral ventricles, orbits, midline falx, hard palate, four-chamber heart, RVOT, LVOT, stomach, kidneys, bladder, umbilical cord insertion into the abdomen, three-vessel cord, cervical spine, thoracic spine, lumbar spine, sacral spine, right upper extremity, left upper extremity, right lower extremity, left lower extremity Suboptimally visualized anatomy: None BIOMETRY: BPD: 5.1 cm 21 weeks 3 days , 82% HC: 19.1 cm 21 weeks 3 days, 77% AC: 16.2 cm 21 weeks 2 days, 69% FL: 3.7 cm 21 weeks 4 days, 77% EFW:425.2 grams; 15 ounces, 89% FL/AC: 22.5 FL/BPD: 71.8 HC/AC: 1.2 GESTATIONAL AGE: Age by EDC: 20 weeks 4 days SEAN by EDC: 09/09/2022 Age by current US: 21 weeks 3 days SEAN by current US: 09/03/2022 IMPRESSION: Normal anatomy scan *Reference: AI[employer] Practice Guideline for the performance of Obstetric Ultrasound Examinations, March 13, 2007. Electronically authenticated by: SERA YEN Date: 2022-04-26 16:52 Normal [facility] AFP MATERNAL FOR SPINA BIFID Aon 04-24-2022 AFP MoM 1.70 Normal [facility] Comment on above: Performed By: #### G LU1HR #### [facility] [address] [address] [address] Julia Land AFP Value 87.8 ng/mL Normal [facility] Comment on above: Performed By: #### G LU1HR #### [facility] [address] [address] [address] Julia Land AFP, Serum for Spina Bifida Report Normal [facility] Comment on above: Performed By: #### G LU1HR #### [facility] [address] [address] [address] Julia Land Comment Comment Normal [facility] Comment on above: Result Comment: Jennifer Epps, Ph.D., [facility] Director . References: Available Upon Request. . Multiples Of Median Cutoffs For AFP Elevations Harrell 2.5 Black 2.8 IDD 2.0 Twins 4.5 Abbreviation Definitions IDD - Insulin Dep Diabetes OSBR - Open Spina Bifida Risk . For further inquiries contact [facility] at [phone]. . This test was developed and its performance characteristics determined by [employer]. It has not been cleared or approved by the Food and Drug Administration. Performed By: #### G LU1HR #### [facility] [address] [address] [address] Julia Land Gest Age Collection Date 20.0 weeks Normal [facility] Comment on above: Performed By: #### G LU1HR #### [facility] [address] [address] [address] Julia Land Gestat, Age Based on LMP Normal [facility] Comment on above: Result Comment: Reca lculations are not recommended when gestational dating by LMP and ultrasound are within 10 days. Performed By: #### G LU1HR #### [facility] [address] [place] [address] Dr. Julia Land Insulin Dep Diabetes No Normal [facility] Comment on above: Performed By: #### G LU1HR #### [facility] [address] [address] [address] Julia Land Interpretation Comment Normal [facility] Comment on above: Result Comment: Inte rpretation: Screen Negative . This result is screen negative for OSB. The AFP MoM calculated is based on the gestational age provided. MS-AFP can identify up to 80% of open neural tube defects. Closed neural tube defects and some open defects may not be detected by this test. This test does not screen for Down Syndrome or Trisomy 18. If screening for Down Syndrome or Trisomy 18 is desired, contact [facility] to discuss available options. The [employer] recommends amniocentesis be offered to women age 35 and older. Performed By: #### G LU1HR #### [facility] [address] [place] [address] Dr. Julia Land [age] Normal [facility] Comment on above: Performed By: #### G LU1HR #### [facility] [address] [address] [address] Julia Land Multiple Gestation No Normal [facility] Comment on above: Performed By: #### G LU1HR #### [facility] [address] [address] [address] Julia Land OSBR Risk 1 IN [address] [facility] Comment on above: Performed By: #### G LU1HR #### [facility] [address] [place] [address] Dr. Julia Land PDF . [facility] Comment on above: Performed By: #### G LU1HR #### [facility] [address] [place] [address] Dr. Julia Land Race [facility] Comment on above: Performed By: #### G LU1HR #### [facility] [address] [place] [address] Dr. Julia Land Test Results: Negative [facility] Comment on above: Performed By: #### G LU1HR #### [facility] [address] [place] [address] Dr. Julia Land PAP ACOG PANEL 2: 21 to 29on 04-05-2022 . . [facility] Comment on above: Performed By: #### P OCGLUC #### [facility] [address] [place] [address] Dr. Julia Land Age Gdln ACOG Testing - [facility] Comment on above: Performed By: #### P OCGLUC #### [facility] [address] [place] [address] Dr. Julia Land DIAGNOSIS: Comment [facility] Comment on above: Result Comment: NEGA TIVE FOR INTRAEPITHELIAL LESION OR MALIGNANCY. Performed By: #### P OCGLUC #### [facility] [address] [place] [address] Dr. Julia Land Methodology: Comment Normal [facility] Comment on above: Result Comment: This liquid based ThinPrep(R) pap test was screened with the use of an image guided system. Performed By: #### P OCGLUC #### [facility] [address] [place] [address] Dr. Julia Land Note: Comment Normal [facility] Comment on above: Result Comment: The Pap smear is a screening test designed to aid in the detection of premalignant and malignant conditions of the uterine cervix. It is not a diagnostic procedure and should not be used as the sole means of detecting cervical cancer. Both false-positive and false-negative reports do occur. . Performed By: #### P OCGLUC #### [facility] [address] [place] [address] Dr. Julia Land Performed by: Comment Normal [facility] Comment on above: Result Comment: Charley Owusu Management Trainee (ASCP) Performed By: #### P OCGLUC #### [facility] [address] [place] [address] Dr. Julia Land Reflex Criteria: Comment Normal [facility] Comment on above: Result Comment: The HPV DNA reflex criteria were not met with this specimen result therefore, no HPV testing was performed. . Performed By: #### P OCGLUC #### [facility] [address] [place] [address] Dr. Julia Land Specimen adequacy: Comment Normal [facility] Comment on above: Result Comment: Sati sfactory for evaluation. No endocervical component is identified. Performed By: #### P OCGLUC #### [facility] [address] [place] [address] Dr. Julia Land CHLAMYDIA/GONOCOCCUS ERWIN (SW AB/URINE/PAPon 04-01-2022 Chlamydia trachomatis, ERWIN Negative Normal Negative [facility] Comment on above: Performed By: #### C T/NGNA #### [facility] [address] [place] [address] Dr. Julia Land Neisseria gonorrhoeae, ERWIN Negative Normal Negative [facility] Comment on above: Performed By: #### C T/NGNA #### [facility] [address] [place] [address] Dr. Julia Land VAGINITIS/VAGINOSIS DNA PROB Paulo 03-31-2022 Aviva species Negative Normal Negative [facility] Comment on above: Performed By: #### G LU1HR #### [facility] [address] [place] [address] Dr. Julia Land Gardnerella vaginalis Negative Normal Negative [facility] Comment on above: Performed By: #### G LU1HR #### [facility] [address] [place] [address] Dr. Julia Land Trichomonas vaginalis Negative Normal Negative [facility] Comment on above: Performed By: #### G LU1HR #### [facility] [address] [place] [address] Dr. Julia Land HEPATITIS C VIRUS AB W/ REFL EX QUANTon 02-27-2022 HCV AB <0.1 Normal 0.0-0.9 [facility] Comment on above: Performed By: #### G LU1HR #### [facility] [address] [place] [address] Dr. Julia Land Interpretation: Comment Normal [facility] Comment on above: Result Comment: Nega tive Not infected with HCV, unless recent infection is suspected or other evidence exists to indicate HCV infection. Performed By: #### G LU1HR #### [facility] [address] [place] [address] Dr. Julia Land HEP B SURFACE ANTIGEN SCREEN on 02-26-2022 HBsAg Screen Negative Normal Negative [facility] Comment on above: Performed By: #### H BSANS #### [facility] [address] [place] [address] Dr. Julia Land HIV 1 AND 2 WITH REFLEXon HIV Screen 4th Generation wRfx Non-Reactive Normal Non Reactive [facility] Comment on above: Result Comment: HIV Negative HIV-1/HIV-2 antibodies and HIV-1 p24 antigen were NOT detected. There is no laboratory evidence of HIV infection. Performed By: #### H IV12 #### [facility] [address] [place] [address] Dr. Julia Land RPR QUANTon 02-26-2022 Rapid Plasma Reagin, Quant Non-Reactive Normal NonRea<1:1 [facility] Comment on above: Result Comment: Plea se Note: This test does not meet current guidelines for screening and diagnosis of syphilis. This test is intended for following treatment response in patients being treated for syphilis infection. To screen for syphilis infection, a reflex cascade that includes both RPR and a treponema-specific assay should be utilized, such as Treponema pallidum (Syphilis) Screening [place] (563358) or Rapid Plasma Reagin (RPR) Test With Reflex to Quantitative RPR and Confirmatory Treponema pallidum Antibodies (373656). Performed By: #### G LU1HR #### [facility] [address] [place] [address] Dr. Julia Land RUBELLA AB IGGon 02-26-2022 Rubella Antibodies, IgG 2.42 index Normal Immune >0.99 [facility] Comment on above: Result Comment: Non- immune <0.90 Equivocal 0.90 - 0.99 Immune >0.99 Performed By: #### P OCGLUC #### [facility] [address] [place] [address] Dr. Julia Land CBC AUTO DIFFon 02-25-2022 BASO # 0.0 103/ul Normal 0.0-0.1 [facility] Comment on above: Performed By: #### P OCGLUC #### [facility] [address] [place] [address] Dr. Julia Land Basophils/100 WBC (Bld) 0.3 % Normal 0.2-2.0 [facility] Comment on above: Performed By: #### P OCGLUC #### [facility] [address] [place] [address] Dr. Julia Land EO # 0.1 103/ul Normal 0.0-0.7 [facility] Comment on above: Performed By: #### P OCGLUC #### [facility] [address] [address] [address] Julia Land Eosinophils/100 WBC (Bld) 0.7 % Critically low 0.9-7.0 [facility] Comment on above: Performed By: #### P OCGLUC #### [facility] [address] [place] [address] Dr. Julia Land Erythrocyte distribution width (RBC) [Ratio] 12.7 % Normal 11.0-15.0 [facility] Comment on above: Performed By: #### P OCGLUC #### [facility] [address] [place] [address] Dr. Julia Land Hematocrit (Bld) [Volume fraction] 35.5 % Critically low 36.0-48.0 [facility] Comment on above: Performed By: #### P OCGLUC #### [facility] [address] [place] [address] Dr. Julia Land Hemoglobin (Bld) [Mass/Vol] 12.1 g/dL Normal 12.0-16.0 [facility] Comment on above: Performed By: #### P OCGLUC #### [facility] [address] [place] [address] Dr. Julia Land IG # 0.05 10e3/ul Critically high 0.00-0.03 [facility] Comment on above: Performed By: #### P OCGLUC #### [facility] [address] [place] [address] Dr. Julia Land IG % 0.4 % Normal 0.0-0.5 [facility] Comment on above: Performed By: #### P OCGLUC #### [facility] [address] [place] [address] Dr. Julia Land LYMPH # 2.3 103/ul Normal 1.2-3.8 [facility] Comment on above: Performed By: #### P OCGLUC #### [facility] [address] [place] [address] Dr. Julia Land Lymphocytes/100 WBC (Bld) 19.6 % Critically low 20.5-60.0 [facility] Comment on above: Performed By: #### P OCGLUC #### [facility] [address] [address] [address] Julia Land MANUAL DIFF REQ NO Normal [facility] Comment on above: Performed By: #### P OCGLUC #### [facility] [address] [place] [address] Dr. Julia Land MCH (RBC) [Entitic mass] 29.4 pg Normal 26.7-34.0 [facility] Comment on above: Performed By: #### P OCGLUC #### [facility] [address] [place] [address] Dr. Julia Land MCHC (RBC) [Mass/Vol] 34.1 g/dL Normal 29.9-35.2 [facility] Comment on above: Performed By: #### P OCGLUC #### [facility] [address] [place] [address] Dr. Julia Land MCV (RBC) [Entitic vol] 86.4 fL Normal 81.0-99.0 [facility] Comment on above: Performed By: #### P OCGLUC #### [facility] [address] [place] [address] Dr. Julia Land MONO # 0.8 103/ul Normal 0.3-0.8 [facility] Comment on above: Performed By: #### P OCGLUC #### [facility] [address] [place] [address] Dr. Julia Land Monocytes/100 WBC (Bld) 7.1 % Normal 1.7-12.0 [facility] Comment on above: Performed By: #### P OCGLUC #### [facility] [address] [place] [address] Dr. Julia Land NEUT # 8.4 103/ul Critically high 1.4-6.5 [facility] Comment on above: Performed By: #### P OCGLUC #### [facility] [address] [place] [address] Dr. Julia Land Neutrophils/100 WBC (Bld) 71.9 % Normal 43.0-75.0 [facility] Comment on above: Performed By: #### P OCGLUC #### [facility] [address] [address] [address] Julia Land Platelet mean volume (Bld) [Entitic vol] 9.3 fL Critically low 9.5-13.5 [facility] Comment on above: Performed By: #### P OCGLUC #### [facility] [address] [address] [address] Julia Land PLT 295 103/ul Normal 150-450 [facility] Comment on above: Performed By: #### P OCGLUC #### [facility] [address] [address] [address] Julia Land RBC 4.11 106/ul Critically low 4.20-5.40 [facility] Comment on above: Performed By: #### P OCGLUC #### [facility] [address] [address] [address] Julia Land WBC 11.7 103/ul Critically high 4.0-11.0 [facility] Comment on above: Performed By: #### P OCGLUC #### [facility] [address] [address] [address] Julia Land CULTURE URINEon 02-25-2022 CULTURE URINE Culture Observations: MODERATE GROWTH OF MIXED GENITAL KARRIE. NO POTENTIAL PATHOGENS SEEN. Normal [facility] Comment on above: Performed By: #### H BSANS #### [facility] [address] [address] [address] Julia Land GLYCOHEMOGLOBIN A1Con 2021 ADA RECOMMENDATION SEE BELOW Normal [facility] Comment on above: Result Comment: ADA RECOMMENDED LIMIT 4.0 - 6.0 ADA THERAPEUTIC TARGET < 7.0 ACTION SUGGESTED > 7.0 Performed By: #### P OCGLUC #### [facility] [address] [address] [address] Julia Land Glucose [Mass/Vol] 97 mg/dL Normal [facility] Comment on above: Performed By: #### P OCGLUC #### [facility] [address] [address] [address] Julia Land HbA1c (Bld) [Mass fraction] 5.0 % Normal 4.5-6.2 [facility] Comment on above: Performed By: #### P OCGLUC #### [facility] [address] [place] [address] Dr. Julia Land ROCÍO BOX TEST PT SEND OUTo n 02-25-2022 SENT TO REF LAB 02/25/2022 Normal [facility] Comment on above: Performed By: #### N BOX #### [facility] [address] [place] [address] Dr. Julia Land TYPE AND SCREENon 02-25-2022 TYPE AND SCREEN Negative Normal [facility] Comment on above: Performed By: #### T NS #### [facility] [address] [place] [address] Dr. Julia Land US PREG TVon 02-05-2022 US PREG TV EXAMINATION: US PREG TV HISTORY: Missed period COMPARISON: No relevant comparison available. FINDINGS: GESTATIONAL SAC: Present and normal appearing. POLE: Present and normal appearing. YOLK SAC: Present. CARDIAC: Present. UTERUS: Normal size and appearance. OVARIES: Right: Normal. Left: Not seen. CERVIX: 4.4 cm in length and closed. CUL-DE-SAC: Normal. OTHER: None. AGE BY LMP: 10 weeks, 1 day SEAN BY LMP: 09/02/2022 AGE BY US CRL: 9 weeks, 1 day SEAN BY US CRL: 09/09/2022 IMPRESSION: 1. Single live intrauterine . Electronically authenticated by: SUSHMA CUADRA Date: 2022-02-05 17:07 Normal [facility] Registrationon 01-01-2022 Registration [id number] 5#[id number]:127 Normal [facility] 12-29-2021 Consent [id number] 0#1.00CD:127 Normal [facility] COVID Quick Testingon 2020 Result Positive [facility] Other Vital Signs Date Time Vital Sign Value Performing Clinician Facility 01-30-2024 11:04-0400 Body height 160.02 cm [facility] 01-30-2024 11:04-0400 Body mass index (BMI) [Ratio] 34.9 kg/m2 [facility] 01-30-2024 11:04-0400 Body temperature 97.2 [degF] [facility] 01-30-2024 11:04-0400 Body weight 89.35 kg [facility] 01-30-2024 11:04-0400 Diastolic blood pressure 80 mm[Hg] [facility] 01-30-2024 11:04-0400 Heart rate 89 /min [facility] 01-30-2024 11:04-0400 Respiratory rate 20 /min [facility] 01-30-2024 11:04-0400 SaO2% (BldA) [Mass fraction] 99 % [facility] 01-30-2024 11:04-0400 Systolic blood pressure 122 mm[Hg] [facility] 05-03-2023 09:30-0500 Body height 160.02 cm [facility] Other [facility] Other 05-03-2023 09:30-0500 Body mass index (BMI) [Ratio] 34.72 kg/m2 Marie [place] Other [facility] Other 05-03-2023 09:30-0500 Body temperature 97.2 [degF] Marie [place]ook Other [facility] Other 05-03-2023 09:30-0500 Body weight 88.91 kg Marie [employer] Other [facility] Other 05-03-2023 09:30-0500 Diastolic blood pressure 76 mm[Hg] Marie [employer] Other [facility] Other 05-03-2023 09:30-0500 Respiratory rate 20 /min Marie Sanook Other [facility] Other 05-03-2023 09:30-0500 SaO2% (BldA) [Mass fraction] 99 % Marie Easterwood Other [facility] Other 05-03-2023 09:30-0500 Systolic blood pressure 124 mm[Hg] Marie Easterwood Other [facility] Other 04-05-2023 11:15-0400 Body height 160.02 cm Marie Easterwood Other [facility] Other 04-05-2023 11:15-0400 Body mass index (BMI) [Ratio] 34.72 kg/m2 Marie Easterwood Other [facility] Other 04-05-2023 11:15-0400 Body temperature 97.8 [degF] Marie Easterwood Other [facility] Other 04-05-2023 11:15-0400 Body weight 88.91 kg Marie Easterwood Other [facility] Other 04-05-2023 11:15-0400 Diastolic blood pressure 78 mm[Hg] Marie Easterwood Other [facility] Other 04-05-2023 11:15-0400 Respiratory rate 20 /min Marie Easterwood Other [facility] Other 04-05-2023 11:15-0400 SaO2% (BldA) [Mass fraction] 98 % Marie Easterwood Other [facility] Other 10-24-2023 11:15-0400 Systolic blood pressure 120 mm[Hg] Marie Easterwood Other [facility] Other 01-14-2023 09:00-0400 Body height 160.02 cm Marie Easterwood Other [facility] Other 01-14-2023 09:00-0400 Body mass index (BMI) [Ratio] 34.18 kg/m2 Marie Easterwood Other [facility] Other 01-14-2023 09:00-0400 Body temperature 97.6 [degF] Marie Easterwood Other [facility] Other 01-14-2023 09:00-0400 Body weight 87.54 kg Marie Easterwood Other [facility] Other 01-14-2023 09:00-0400 Diastolic blood pressure 80 mm[Hg] Marie Easterwood Other [facility] Other 01-14-2023 09:00-0400 Respiratory rate 20 /min Marie Easterwood Other [facility] Other 01-14-2023 09:00-0400 SaO2% (BldA) [Mass fraction] 98 % Marie Easterwood Other [facility] Other 01-14-2023 09:00-0400 Systolic blood pressure 122 mm[Hg] Marie Easterwood Other [facility] Other 04-24-2022 02:06-0500 Body weight 84.[address] SMOOTH ZUNIGA . [facility] Comment on above: Performed By: #### GLU1HR #### [facility] [address] [address] [address] Julia Land Encounters Encounter Date Encounter Type Care Provider Facility Start: 01-30-2024 End: 01-30-2024 ambulatory [facility] [place] Work Phone: Start: 01-30-2024 End: 01-30-2024 Patient encounter procedure Pending Sale To [facility] Work Phone: Start: 12-12-2023 Non-patient / Non-visit Pending Sale To [facility] Work Phone: Start: 06-22-2023 End: 06-22-2023 ambulatory Marie Easterwood Other [facility] Other Start: 06-22-2023 Telephone encounter Marie Easterwood [facility] Start: 06-01-2023 End: 06-01-2023 ambulatory Marie Easterwood Other [facility] Other Start: 06-01-2023 PF ONLINE E/M PHY VIRTUL 5-10 Marie Easterwood [facility] Start: 05-30-2023 End: 05-30-2023 ambulatory Marie Easterwood Other [facility] Other Start: 05-30-2023 Telephone encounter Marie Easterwood [facility] Start: 05-13-2023 End: 05-13-2023 ambulatory Marie Easterwood Other [facility] Other Start: 05-13-2023 Telephone encounter Marie Easterwood [facility] Start: 05-03-2023 End: 05-03-2023 ambulatory Marie Easterwood Other [facility] Other Start: 05-03-2023 Office outpatient [facility] Start: 04-29-2023 End: 04-29-2023 ambulatory Marie Garcia Other [facility] Other Start: 04-29-2023 Telephone encounter Marie [facility] Start: 04-05-2023 End: 04-05-2023 ambulatory Marie Garcia Other [facility] Other Start: 04-05-2023 Office outpatient vi sit 25 minutes [facility] Start: 04-05-2023 Telephone encounter [facility] Start: 01-14-2023 End: 01-14-2023 ambulatory Marie [place] Other [facility] Other Start: 01-14-2023 Encounter for genera l adult medical examination without abnormal findings [facility] Start: 01-14-2023 Initial preventive medicine new pt age 18-39yrs [facility] Start: 12-20-2022 End: 12-21-2022 ambulatory French Langford Facility:[facility] Start: 09-17-2022 End: 09-18-[address] HILDA WOOD . Facility:[facility] Start: 09-14-2022 ambulatory ANTHONY OLIVER . Facility: 1 Start: 09-13-2022 End: 09-15-2022 Evaluation and management of inpatient DR MORIS RILEY . Facility:[facility] Start: 09-10-2022 End: 09-10-[address] MORIS RILEY . Facility:[facility] Start: 09-07-2022 End: 09-07-[address] SMOOTH ZUNIGA . Facility:[facility] Start: 09-03-2022 End: 09-03-2022 ambulatory KYA QUIROZ Facility:[facility] Start: 08-31-2022 End: 08-31-[address] SMOOTH ZUNIGA . Facility:[facility] Start: 08-31-2022 Evaluation and management of inpatient DR SMOOTH ZUNIGA . Facility:[facility] Start: 08-27-2022 End: 08-27-[address] SMOOTH ZUNIGA . Facility:[facility] Start: 08-24-2022 End: 08-24-[address] SMOOTH ZUNIGA . Facility:[facility] Start: 08-20-2022 End: 08-20-[address] MORIS RILEY . Facility:[facility] Start: 08-17-2022 End: 08-17-[address] MORIS RILEY . Facility:[facility] Start: 08-17-2022 Evaluation and management of inpatient DR SMOOTH ZUNIGA . Facility:[facility] Start: 08-13-2022 End: 08-13-2022 ambulatory KYA QUIROZ Facility:[facility] Start: 08-12-2022 End: 08-12-2022 ambulatory ANTHONY OLIVER . Facility:[facility] Start: 08-10-2022 End: 08-10-[address] SERA YEN Facility:[facility] Start: 08-06-2022 End: 08-06-[address] SMOOTH ZUNIGA . Facility:[facility] Start: 08-03-2022 End: 08-03-[address] SMOOTH ZUNIGA . Facility:[facility] Start: 07-30-2022 End: 07-30-2022 ambulatory KYA QUIROZ Facility:[facility] Start: 07-27-2022 End: 07-27-[address] SMOOTH ZUNIGA . Facility:[facility] Start: 06-17-2022 End: 06-18-[address] SMOOTH ZUNIGA . Facility:[facility] Start: 06-08-2022 End: 06-09-[address] SMOOTH ZUNIGA . Facility:[facility] Start: 06-02-2022 End: 06-03-[address] SMOOTH ZUNIGA . Facility:[facility] Start: 04-26-2022 End: 04-27-[address] SMOOTH ZUNIGA . Facility:[facility] Start: 04-22-2022 End: 04-23-[address] SMOOTH ZUNIGA . Facility:[facility] Start: 03-29-2022 End: 03-29-[address] SMOOTH ZUNIGA . Facility:[facility] Start: 02-25-2022 End: 02-26-[address] SMOOTH ZUNIGA . Facility: Start: 02-05-2022 End: 02-06-[address] SMOOTH ZUNIGA . Facility: Start: 12-29-2021 End: 12-30-2021 ambulatory Lester LA VERGNE Facility:[facility] Start: 06-09-2021 End: 06-09-2021 ambulatory Becka Aaron Other [employer] Other Start: 06-09-2021 Office outpatient vi sit 5 minutes Becka Aaron [facility] [address] Procedures Date Procedure Procedure Detail Performing Clinician Start: 09-13-2022 Extraction of Produc ts of Conception, Low Cervical, Open Approach DR SMOOTH ZUNIGA . Immunizations Immunization Date Immunization Notes Care Provider Fa [facility] 01-07-2018 tetanus toxoid, redu rose diphtheria toxoid, and acellular pertussis vaccine, adsorbed Becka Aaron Other [facility] [place] Payers Date Payer Category Payer Unknown [id number] 1994 Unknown [id number] 2.16.84 0.1.508965.3.579.2.593 1994 Unknown [id number] 2.16.84 0.1.586160.3.579.2.593 1994 Unknown [id number] 2.16.84 0.1.142561.3.579.2.593 1994 Unknown [id number] 2.16.84 0.1.596583.3.579.2.593 1994 Unknown [id number] 2.16.84 0.1.399836.3.579.2.593 1994 Unknown [id number] 2.16.84 0.1.917727.3.579.2.59 1994 Unknown [id number] 2.16.84 0.1.760592.3.579.2.593 1994 Unknown [id number] 2.16.84 0.1.625053.3.579.2.593 1994 Unknown [id number] 2.16.84 0.1.710106.3.579.2.593 1994 Unknown [id number] 2.16.84 0.1.188907.3.579.2.593 1994 Unknown [id number] 2.16.84 0.1.570421.3.579.2.593 1994 Unknown [id number] 2.16.84 0.1.450796.3.579.2.593 1994 Unknown [id number] 2.16.84 0.1.335109.3.579.2.593 1994 Unknown [id number] 2.16.84 0.1.280976.3.579.2.593 1994 Unknown [id number] 2.16.84 0.1.354939.3.579.2.593 1994 Unknown [id number] 2.16.84 0.1.760539.3.579.2.593 1994 Unknown [id number] 2.16.84 0.1.002243.3.579.2.593 1994 Unknown [id number] 2.16.84 0.1.453048.3.579.2.593 1994 Unknown [id number] 2.16.84 0.1.200348.3.579.2.593 1994 Unknown [id number] 2.16.84 0.1.390685.3.579.2.593 1994 Unknown [id number] 2.16.84 0.1.224234.3.579.2.593 1994 Unknown [id number] 2.16.84 0.1.231544.3.579.2.593 1994 Unknown [id number] 2.16.84 0.1.625715.3.579.2.593 1994 Unknown [id number] 2.16.84 0.1.806727.3.579.2.593 1994 Unknown [id number] 2.16.84 0.1.761611.3.579.2.593 1994 Unknown [id number] 2.16.84 0.1.965054.3.579.2.593 1994 Unknown [id number] 2.16.84 0.1.598602.3.579.2.593 1994 Unknown [id number] 2.16.84 0.1.731454.3.579.2.593 1994 Unknown [id number] 2.16.8 40.1.979128.3.579.2.727 1994 Unknown [id number] 2.16.8 40.1.166997.3.579.2.727 1959 Self-pay [id number] 1959 Self-pay 1959 Unknown [id number] [facility] [id number] 2.16.840.1.833145.19 Unknown [id number] 2.16.84 0.1.432716.3.579.2.593 Social History Date Type Detail Facility Sex Assigned At [facility] [employer] Other Sex Assigned At Sex Assigned At Bir th [employer] Other Start: 01-16-2024 Tobacco smoking status NHIS Never smoked tobacco (finding) [facility] [place] Start: 1995 Sex Assigned At Female F [facility] Clinical Notes 09-12-2022 to 06-22-2023 Note Date & Type Note Facility 06-22-2023 Evaluation note Encounter Date Diagnosis Assessment Notes Jun, Bipolar depression (ICD-10 - F31.30) [facility] [employer] Other 12-20-2023 Evaluation note* Encounter Date Diagnosis Assessment Notes Treatment Notes Treatment Clinical Notes May, Bipolar depression (ICD-10 - F31.30) Discussed increasing medication at this time and following up in 4 to 6 weeks. Patient is doing very well. Aware of side effects and adverse effects of the medication. Discussed when to follow-up if needed sooner. Doing very well. All questions answered and patient ends the call stable. I have spent 10 minutes with this patient and over 50% of the visit was counseling done by myself, Marie WHITEHEAD. *Progress note was completed with the assistance of voice recognition software for dictation purposes. Please excuse any grammatical errors that were not corrected during review process. [employer] Other 12-18-2023 Evaluation note* Encounter Date Diagnosis Assessment Notes Treatment Notes Treatment Clinical Notes May, Bipolar depression (ICD-10 - F31.30) [employer] Other 12-01-2023 Evaluation note* Encounter Date Diagnosis Assessment Notes Treatment Notes Treatment Clinical Notes May, Bipolar depression (ICD-10 - F31.30) [facility] Other 11-21-2023 Evaluation note* Encounter Date Diagnosis Assessment Notes Treatment Notes Treatment Clinical Notes Apr, Bipolar depression (ICD-10 - F31.30) Emotional and motivational support given today. I am pleased to hear that she is appreciating the side effects the medication. Aware of adverse effects and when to follow-up right away. We will continue to increase the medication as tolerated. The goal would be to continue the 100 mg dose x2 more weeks once this bottle is completed. We will then follow-up in office in approximately 4 weeks. Aware of side effects of insomnia and headaches intermittently but if these become uncontrolled we will make changes to medication as needed. Apr, Other hemorrhoids (ICD-10 - K64.8) Continue medication as prescribed as needed. Aware of red flags and when to follow-up sooner or report to ER. Again reiterated the need for daily fiber supplementation and stool softeners daily if needed as well Apr, Other *Progress note was completed with the assistance of voice recognition software for dictation purposes. Please excuse any grammatical errors that were not corrected during review process. [employer] Other 10-24-2023 Evaluation note* Encounter Date Diagnosis Assessment Notes Treatment Notes Treatment Clinical Notes Mar, Bipolar depression (ICD-10 - F31.30) [employer] Other 10-24-2023 Evaluation note* Encounter Date Diagnosis Assessment Notes Treatment Notes Treatment Clinical Notes Mar, Bipolar depression (ICD-10 - F31.30) Lengthy discussion regarding initiation of medication. Initiation of Lamictal discussed. 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 As always counseling is optimal adjunct of therapy. Patient is aware of the goal of therapy, titration schedule and common side effects. Much emotional and motivational support given today. Patient is very self-aware and I do feel that she will do well once initiated on the medication. Again I do not have concerns for self-harm thoughts or acts, her being a harm to others or any significant substance abuse. Follow-up in 4 weeks. Mar, Hemorrhoid (ICD-10 - K64.9) Discussed hemorrhoids at length. Discussed how constipation can exacerbate symptoms. Will trial suppositories as needed. Discussed pathology behind hemorrhoids and reduction of inflammation. Discussed fiber into the diet, drinking plenty of water and Metamucil daily. Discussed red flags and when to report to ER. No concern for significant underlying acute or chronic pathology today. We will follow-up in 4 weeks Mar, Other *Progress note was completed with the assistance of voice recognition software for dictation purposes. Please excuse any grammatical errors that were not corrected during review process. [employer] Other 08-04-2023 Evaluation note* Encounter Date Diagnosis Assessment Notes Treatment Notes Treatment Clinical Notes Jan, Well adult exam (ICD-10 - Z00.00) We have discussed the necessity of following up with PCP regularly as well as specialists, as needed. Discussed F/U with dentistry and optometry at least yearly. Discussed all preventative measures/ cancer screenings as applicable to this patient. Emphasized the importance of a reduced fat, low carb diet to promote heart health and controlled blood sugars. Reviewed social history and ensured patient is safe within the home today. Pt denies any abuse of alcohol, nicotine, caffeine or recreational drugs. I have ensured patient is of stable mental and physical health today. We have discussed appropriate F/U schedule as well as blood work and vaccinations that apply. All questions answered and patient is sent home pleased, without concerns. *Progress note was completed with the assistance of voice recognition software for dictation purposes. Please excuse any grammatical errors that were not corrected during review process. [employer] Other 04-02-2023 History general Narrative - Reported* Type Description Date Medical History Bipolar depression Surgical History 09/12/2022 Hospitalization History See surgical hx [employer] Other 04-02-2023 History general Narrative - Reported* Type Description Date Medical History Bipolar depression Medical History Hemorrhoid Surgical History 09/12/2022 Hospitalization History See surgical hx [employer] Other Evaluation note[employer] Other Evaluation noteNo InformationNort [employer] Other Evaluation noteNo assessment information available [facility] Work Phone: Summary Purpose Family History Relationship Condition Age at Onset Recorded Date/T praveena brother Autistic disorder Unknown grandparent Diabetes mellitus Unknown grandparent Alcoholism Unknown Diabetes mellitus Unknown grandparent History of stroke Unknown Unknown Heart disease Unknown grandparent Unknown Family history of pancreatic cancer Unkno wn Advance Directives Advance Directive Response Recorded Date/ Time Advance Directives No January 15 9:03am Chief Complaint and Reason for Visit Chief Complaint Amb Documentation follow up Additional Source Comments INFORMATION SOURCE (unrecogn ized section and content) DATE CREATED AUTHOR [facility]2022 [facility] DATE CREATED AUTHOR AUTHOR'S ORGANIZ ATION 12/20/2022 [facility] REASON FOR VISIT (unrecogniz ed section and content) Establish Care, New patientl amictal rx clarificationLamictal RxDiscuss mental health, Painful hemorrhoid that comes and goes since having sonrefill lamictal1 month Follow up - GI/Psychrefill Lamictalrefill Lamictal1 month Follow up - GI/Psych1 month Follow up - Lamictal, [place] Virtual ExamRefill Lamictal Care Teams (unrecognized sec tion and content) Team Status: Active Member Role Status Dates Marie Garcia APRN Primary Care Provider Active Team Status: Active Member Role Status Dates Marie Garcia APRN Primary Care Provider Active Start: December 12, 2023 MARIO Cooper Attending Provider Active St art: December 12, 2023 Team Status: Inactive Member Role Status Dates Marie Baird SAMANTHA Garcia Primary Care Hetal Anderson Provider Active Start: January 30, 2024 End: January 30, 2024 Goals (unrecognized section and content) Goals may be documented in a n alternate section FOR RECORDS PERTAINING TO PATIENTS WHO ARE OR HAVE BEEN ENROLLED IN A CHEMICAL DEPENDENCY/SUBSTANCEABUSE PROGRAM, SOME INFORMATION MAY BE OMITTED. This clinical summary was aggregated from multiple sources. Caution should be exercised in using it in the provision of clinical care. This summary normalizes information from multiple sources, and as a consequence, information in this document may materially change the coding, format and clinical context of patient data. In addition, data may be omitted in some cases. CLINICAL DECISIONS SHOULD BE BASED ON THE PRIMARY CLINICAL RECORDS. [facility] [address] [employer] [facility]. provides no warranty or guarantee of the accuracy or completeness of information in this document.
[2024-08-21 13:10] LABS: Age Gdln ACOG Testing Note (.); IGP, rfx Aptima HPV ASCU Note (.)
== END 2024-08-15 19:46 | disposition home or self-care (01) ==
LOC: LAB 19:45
PROVIDERS: Visit Provider Physician Assistant
DX: Z01.419 Encounter for gynecological examination (general) (routine) without abnormal findings (principal)
CPT/HCPCS: 88175